=== PATIENT | female | born 1950 | race Caucasian/White ===

== ENCOUNTER → 2017-08-10 | Outpatient (CLI) | payer OTHER | LOC: GMAB 12:10 | PROVIDERS: ATTEND Family Medicine | DX: R53.82 Chronic fatigue, unspecified (principal) ==

== ENCOUNTER → 2017-10-07 | Outpatient (CLI) | payer OTHER ==
--- NOTE | 2017-10-11 09:21 | MAM ---
EXAM DESCRIPTION: 3D Screening BILATERAL : Digital Mammography. CLINICAL HISTORY: 67 years Female ANNUAL SCREENING . No complaints. No family history breast cancer. Postmenopausal. No HRT. COMPARISON: 2-D digital screening bilateral study 05/05/2016. Report from prior examination also reviewed. TECHNIQUE: Bilateral CC and MLO projection full-field images, 3-D tomosynthesis digital mammographic technique. CAD not utilized. FINDINGS: The breast parenchymal density pattern is: Scattered areas of fibroglandular density. No skin thickening or nipple retraction bilateral solitary microcalcifications. Axillary lymph nodes left breast. No focal, stellate mass or density, focal asymmetry , and no suspicious microcalcifications bilateral breasts. Stable mammograms compared to prior study, taking into account differences in mammographic technique IMPRESSION: BI-RADS CATEGORY: 2 - BENIGN FINDINGS. FOLLOW UP: Routine digital bilateral screening, one year interval from September 2017. Written communication explaining the IMPRESSION and follow-up, will be mailed to the patient and referring health care provider. According to the [employer], yearly mammograms are recommended starting at age 40 and continuing as long as a woman is in good health. Any breast change noted on a breast self-exam should be reported promptly to the patient's healthcare provider. Breast MRI is recommended for women with an approximately 20-25% or greater lifetime risk of breast cancer, including women with a strong family history of breast or ovarian cancer and women who have been treated for Hodgkin's disease. A negative mammographic report should not delay tissue diagnosis in patients with significant clinical history or physical findings. Extremely dense breast tissue limits the sensitivity of digital mammography. Electronically signed by: Kenrick Beck MD 10/11/2017 9:20 AM CDT
== END ==
LOC: GMAB 12:57
PROVIDERS: ATTEND Family Medicine
DX: Z12.31 Encounter for screening mammogram for malignant neoplasm of breast (principal)

== ENCOUNTER → 2018-08-16 | Outpatient (CLI) | payer OTHER | LOC: GMAE 11:39 | PROVIDERS: ATTEND Family Medicine | DX: E78.2 Mixed hyperlipidemia (principal); E11.9 Type 2 diabetes mellitus without complications; Z12.11 Encounter for screening for malignant neoplasm of colon ==

== ENCOUNTER → 2020-03-15 | Outpatient (CLI) | payer OTHER | LOC: GMAE 10:44 | PROVIDERS: ATTEND Family Medicine | DX: Z79.899 Other long term (current) drug therapy (principal); E11.9 Type 2 diabetes mellitus without complications; E78.2 Mixed hyperlipidemia ==

== ENCOUNTER 2020-04-05 05:17 | Day surgery (SDC) | payer OTHER ==
[2020-04-05] MEDS ORDERED: PROPOFOL 200 MG/20 ML VIAL IV ONE (05:18)
[2020-04-05] MEDS ORDERED: GLYCOPYRROLATE 0.2 MG/ML VIAL IV ONE (05:18)
[2020-04-05] MEDS ORDERED: LIDOCAINE 1% 10 ML VIAL INJ ONE (05:18)
[2020-04-05] MEDS ORDERED: LACTATED RINGERS 1,000 ML ONE (06:36)
[2020-04-05] MEDS ORDERED: LACTATED RINGERS 200 ML IVS ONE (10:23)
--- NOTE | 2020-04-05 11:06 | OP ---
DATE OF PROCEDURE: 04/05/20 PREOPERATIVE DIAGNOSIS: 1. History of colonic polyps. POSTOPERATIVE DIAGNOSIS: 1. Polyp in proximal transverse colon, approximately 2.5 mm. PROCEDURE: 1. Colonoscopy plus polypectomy. SURGEON: Michael Bowen MD ANESTHESIA: General. FINDINGS: As described. COMPLICATIONS: None. PLAN: Followup for results. INDICATION: The patient has a history of colonic polyps. PROCEDURE: General anesthesia was induced in the lateral position. She was complaining of rectal prolapse and bleeding hemorrhoids. I did not notice any prolapse today. She did have good sphincter tone and no obvious redundant mucosa on examination. No thick, swollen hemorrhoids either. The scope was inserted and passed to the cecum without difficulty as identified by the terminal ileum and appendiceal orifice was not readily seen, but felt it was behind a fold. We were definitely in the cecum. Upon withdrawal, the mucosal surfaces appeared normal. Only one polyp was seen. This was near the proximal or mid transverse colon and it was excised completely. Upon further withdrawal, no additional polyps were seen. Upon retroflexion, the rectum showed small internal hemorrhoids. It was not bleeding at the time. The rectum was desufflated and the scope withdrawn. The patient tolerated the procedure and was taken to Recovery to be discharged. #[id number] MTDD
[2020-04-05 11:07] VITALS: BP 124/64; TEMP 96.6; O2SAT 98
== END 2020-04-05 11:10 | disposition home or self-care (01) ==
LOC: AMB 05:17
PROVIDERS: ATTEND Surgery
DX: D12.3 Benign neoplasm of transverse colon (principal); I10 Essential (primary) hypertension; E11.9 Type 2 diabetes mellitus without complications; Z86.010 Personal history of colon polyps; Z88.1 Allergy status to other antibiotic agents; Z88.0 Allergy status to penicillin; Z88.2 Allergy status to sulfonamides; Z79.82 Long term (current) use of aspirin; Z79.899 Other long term (current) drug therapy
CPT/HCPCS: 00811; 36416; 45380; 82948; J3490; J7120